=== PATIENT | male | born 2005 | race African-American/Black ===

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

== ENCOUNTER 2023-11-08 15:09 | Emergency (ER) | payer BC, OTHER | END 2023-11-08 16:34 | disposition home or self-care (01) | LOC: CSHERS 15:09 | DX: R51.9 Headache, unspecified (principal) | CPT/HCPCS: 99283 ==